=== PATIENT | female | born 1945 | race African-American/Black ===

== ENCOUNTER 2018-06-02 15:13 | Outpatient (CLI) | payer MEDICARE ==
--- NOTE | 2018-06-02 16:03 | Diagnostic Imaging Report ---
Indication: Chest pain Comparison: None 2 views of the chest obtained. Findings: Cardiomediastinal silhouette and pulmonary vascularity are within normal limits for age. There may be some mild prominence of the pulmonary interstitium which is nonspecific finding. The diaphragmatic contour is smooth and costophrenic angles are sharp. No pleural effusions are identified. The bones are unremarkable. Impression: No acute disease
--- NOTE | 2018-06-05 09:10 | Diagnostic Imaging Report ---
Indication: Osteoporosis Technique: 10 mm thick slices obtained through the L2, L3, and L4 vertebral bodies. Cortical and trabecular regions of interest were drawn. The average trabecular bone mineral density was calculated. Total dose length product 31.95 mGycm. CTDIvol(s) 3, 3, 3 mGy. Dose reduction achieved using automated exposure control Comparison: none Findings: The calculated bone mineral density is 84.7 mg ca-MUNIZ/ml. The T score is -2.7. This indicates the patient's bone mineral density is 2.7 standard deviations below that of normal 20-year-old females. The Z score is 0.15. This indicates the patient's bone mineral density is 0.15 standard deviations above that of age-matched controls Impression: Patient's bone mineral density is greater than 25% below that of normal 20-year-old females. Patient is considered osteoporotic by WHO criteria. Insufficiency fracture risk is high. Patient should be considered for therapy, if not already initiated, with followup scan in one year to monitor response to therapy. The CT scanner at [facility] is accredited by the [employer] and the scans are performed using protocols designed to limit radiation exposure to as low as reasonably achievable to attain images of sufficient resolution adequate for diagnostic evaluation.
== END 2018-06-02 17:13 | disposition home or self-care (01) ==
LOC: RAD 15:13
DX: L93.0 Discoid lupus erythematosus (principal); R07.9 Chest pain, unspecified
CPT/HCPCS: 71046; 77078